=== PATIENT | female | born 1980 | race Caucasian/White ===

== ENCOUNTER 2018-01-29 01:46 | Emergency (ER) | payer OTHER ==
[~2018-01-29] VITALS: Ht 162.6 cm; Wt 95.0 kg
[2018-01-29 01:48] VITALS: Ht 162.6 cm; Wt 95.0 kg
[2018-01-29] MEDS ORDERED: SODIUM CHLORIDE 0.9% 1000ML 1,000 ML IV STA (01:55)
[2018-01-29] MEDS ORDERED: ONDANSETRON INJ 2 MG/ML 2 ML VIAL IV STA (01:55)
[2018-01-29] MEDS ORDERED: BENTYL HOME PACK 10 MG VIAL PO ONE (02:00)
[2018-01-29] MEDS ORDERED: ONDANSETRON HOME PACK 4MG OD TAB PO ONE (02:00)
[2018-01-29] MEDS ORDERED: DICYCLOMINE HCL 10 MG/ML 2 ML AMP IM ONE (02:00)
[2018-01-29] MEDS ORDERED: BUPR1SUB23 PO (02:24)
[2018-01-29] MEDS ORDERED: RIZA10TA18 PO (02:24)
[2018-01-29] MEDS ORDERED: ABL10 PO (02:24)
[2018-01-29] MEDS ORDERED: SERT-234 PO (02:24)
[2018-01-29 02:32] VITALS: BP 115/81; PULSE 88; TEMP 37; O2SAT 100
--- NOTE | 2018-01-29 04:31 | EMERGENCY ROOM VISIT NOTE ---
History First contact with patient: 01:48 Chief Complaint: VOMITING Stated Complaint: VOMITING, GRANGER Nursing Triage Summary: nausea/vomiting since last week History of Present Illness The patient is a 37 year old female who presents to the Emergency Room with complaints of nausea, vomiting, diarrhea for the past days. Patient states she feels like it is tapering off. Patient denies abdominal pain, black or blood in the stool or emesis, fever, chills, chest pain, dyspnea, flulike illness. She states other family members are sick with similar symptoms. No well water. No bad food. No recent antibiotics. Patient is requesting a work note. Review of Systems An 10 system review of systems was completed with positives and pertinent negatives listed in the HPI. Past Medical/Surgical History Cholecystectomy, anxiety, depression, migraines, on Suboxone for chronic pain Social History Smoking Status: Current Every Day Smoker Alcohol Use: none Drug Use: none Occupation Status: employed Current/Historical Medications Scheduled Aripiprazole (Abilify), 1 TAB PO DAILY Buprenorphine Hcl-Naloxone Hcl (Suboxone 8-2 Mg), 1 DOSE PO DAILY Sertraline (Zoloft), 100 MG PO DAILY Scheduled PRN Rizatriptan Benzoate (Maxalt), 10 MG PO UD PRN for Migraine Physical Exam Vital Signs Date Time Temp Pulse Resp B/P (MAP) Pulse Ox O2 Delivery O2 Flow Rate FiO2 01/29/18 02:32 37.0 88 19 115/81 100 01/29/18 01:48 37.0 80 18 117/70 100 Room Air Physical Exam VITALS: Vitals are noted on the nurse's note and reviewed by myself. Vital signs stable. GENERAL: Pleasant female, in no acute distress, nondiaphoretic, well-developed well-nourished. SKIN: The skin was without rashes, erythema, edema, or bruising. There is no tenting of the skin. Capillary reflex less than 2 seconds. HEAD: Normocephalic atraumatic. EARS: External auditory canals clear, tympanic membranes pearly monreal without erythema or effusion bilaterally. EYES: Pupils equal round and reactive to light and accommodation. Conjunctivae without injection, sclerae without icterus. Extraocular movements intact. NOSE: Patent, turbinates without inflammation or discharge. MOUTH: Mucous membranes moist. Pharynx without erythema or exudate. Uvula midline. Airway patent. Tongue does not deviate. NECK: Supple without nuchal rigidity. No lymphadenopathy. No thyromegaly. Cervical spine is nontender. No JVD. HEART: Regular rate and rhythm without murmurs gallops or rubs. LUNGS: Clear to auscultation bilaterally without wheezes, rales or rhonchi. No retractions or accessory muscle use. ABDOMEN: Positive bowel sounds x 4. Normal tympanic percussion. Soft, nontender, without masses or organomegaly. Nieves sign negative. No guarding or rebound tenderness. No CVA tenderness MUSCULOSKELETAL: No muscle atrophy, erythema, or edema noted. NEURO: Patient was alert and oriented to person place and time. Normal sensation to light and sharp touch. No focal neurological deficits. Medical Decision & Procedures Medications Administered Medications (Trade) Dose Ordered Sig/Hank Route Start Time Stop Time Status Last Admin Dose Admin Ondansetron HCl (ZOFRAN ODT 4MG Home Pack) 1 homepack UD ONCE PO 01/29/18 02:00 01/29/18 02:01 DC 01/29/18 02:00 1 HOMEPACK Dicyclomine HCl (Dicyclomine HCl 10MG Home Pack) 1 ea UD ONCE PO 01/29/18 02:00 01/29/18 02:01 DC 01/29/18 02:00 1 EA ED Course Prior records/ancillary studies reviewed. Triage Nursing notes reviewed. The patient's history was concerning for nausea, vomiting, diarrhea Differential diagnosis: Etiologies such as gastroenteritis, food borne illness, infections, appendicitis , diverticulitis, inflammatory bowel disease, obstruction, GI bleed, biliary pathology, as well as others were entertained. Physical examination findings: As above. Abdominal examination revealed no tenderness. Vital signs reviewed and revealed stable. ER treatment provided: Zofran and Bentyl home pack On reassessment the patient felt better. Patient was tolerating p.o. intake. Diagnostics interpretation by me: Deferred This appears to be consistent with vomiting and diarrhea mostly viral in etiology. Patient did not have acute abdomen on exam. She declined laboratory testing and was just requesting some nausea medicine and a work note. She felt her symptoms are tapering off but did not feel well enough to go to work tomorrow. I felt this is reasonable. Patient was afebrile nontoxic. She was well-appearing. She is advised to take medications as directed, rest, stay well -hydrated do bland diet for the next few days and follow-up family care in a couple days or here in the ER sooner for abdominal pain, fevers, vomiting, worsening signs or symptoms or as needed.. By the evaluation outlined above emergent etiologies such as appendicitis, diverticulitis, obstruction, cardiac sources, mesenteric ischemia, aortic pathology, inflammatory bowel disease, renal colic, PUD, biliary pathology, UTI, as well as others were deemed relatively unlikely. The pt informed about the findings as listed above. All questions were answered and pleased with the treatment. Return instructions were outlined and the patient was discharged in stable condition. Outpatient prescription management: bruce buckner Referral: The patient was referred to their primary care physician for follow-up in 2 to 3 days for a recheck of the current condition. The chart was completed utilizing [employer] Speech voice recognition software. Grammatical errors, random word insertions, pronoun errors, and incomplete sentences are an occassional consequence of this system due to software limitations, ambient noise, and hardware issues. Any formal questions or concerns about the content, text, or information contained within the body of this dictation should be directly addressed to the physician program assistant for clarification. Medical Decision As above Medication Reconcilliation Current Medication List: was personally reviewed by me Blood Pressure Screening Patient's blood pressure: Normal blood pressure Impression Primary Impression: Nausea, vomiting, and diarrhea Departure Information Dispostion Home / Self-Care Condition [employer] HOME CARE DOCUMENTATION FORM, Work Instructions, Return To Work: 2 days IMPORTANT VISIT INFORMATION Patient Instructions Vomit Diarrhea Self Care, [facility], ED Diet [place] Additional Instructions Bently tablets 10mg: Take one every six hours as needed for abdominal cramping and bloating. Zofran(odansetron) tablets 4mg: Take one and allow it to dissolve in your mouth every four to six hours as needed for nausea or vomiting. Rest and drink plenty of fluids as tolerated. Slow sips of water or sports drinks are recommended instead of large amounts all at once. Continue current medications. [place] diet until symptoms resolve. You should avoid full, heavy meals for about 24 hrs from the time your symptoms resolved. Return to the ER for persistent vomiting, fevers, abdominal pain, chest pains, difficulty breathing, black or bloody stools, worsening of your condition, or as needed. Follow up with your primary physician in 2-3 days for a recheck of your current condition. Work Instructions Return To Work: 2 days
== END 2018-01-29 02:32 | disposition home or self-care (01) ==
LOC: C.EDB 01:47
DX: R11.2 Nausea with vomiting, unspecified (principal); R19.7 Diarrhea, unspecified; F41.8 Other specified anxiety disorders; G89.29 Other chronic pain; F17.200 Nicotine dependence, unspecified, uncomplicated; Z90.49 Acquired absence of other specified parts of digestive tract; Z79.899 Other long term (current) drug therapy